=== PATIENT | male | born 1975 | race Caucasian/White ===

== ENCOUNTER 2024-05-05 10:43 | Emergency (ER) | payer SELFPAY ==
[~2024-05-05] VITALS: Ht 175.3 cm; Wt 79.5 kg
[2024-05-05] MEDS ORDERED: Ondansetron 4 MG/2 ML VIAL IV ONE (11:15)
[2024-05-05] MEDS ORDERED: NS 1,000 ML IV ONE (11:15)
[2024-05-05 11:19] LABS: BASO % 0.7 % (0.0-2.0); EOS # 0.1 K/mm3 (0.0-0.7); EOS % 2.5 % (0.0-4.0); GRAN # 2.4 K/mm3 (1.4-6.5); GRAN % 41.3 % (42.2-75.2); HEMATOCRIT 49.1 % (42.0-52.0); LYMPH # 2.6 K/mm3 (1.2-3.4); LYMPH % 45.6 % (20.0-51.0); MEAN CELL VOLUME 91 fl (80.0-100.0); MEAN CORPUSCULAR HEMOGLOBIN 32 pg (27-31); MEAN CORPUSCULAR HGB CONC 35 g/dl (33.0-37.0); MEAN PLATELET VOLUME 11.3 fl (7.4-10.4); MONO # 0.5 K/mm3 (0.1-0.6); MONO % 9.5 % (1.7-9.3); PLATELET COUNT 194 K/mm3 (130-400); REDCELL DISTRIBUTION WIDTH-CV 12.9 % (11.5-14.5)
[2024-05-05 11:40] LABS: ALBUMIN 4.2 g/dL (3.5-5.0); BILIRUBIN,TOTAL 0.6 mg/dL (0.2-1.2); CALCIUM 9.6 mg/dL (8.4-10.2); CREATININE, serum 0.95 mg/dL (0.72-1.25); POTASSIUM 3.7 mEq/L (3.5-4.5); TOTAL PROTEIN 7.6 g/dl (6.2-8.1)
[2024-05-05] MEDS ORDERED: Iohexol 300 - 100 ML VIAL IV ONE (11:41)
[2024-05-05] MEDS ORDERED: NS 100 ML IV SCH (11:41)
[2024-05-05 13:01] LABS: PH 5.5 (5.0-8.5); URINE APPEARANCE CLEAR (CLEAR/HAZY); URINE BLOOD NEGATIVE (NEGATIVE); URINE COLOR YELLOW (YELLOW); URINE GLUCOSE NEGATIVE (NEGATIVE); URINE KETONE NEGATIVE (NEGATIVE); URINE NITRATE NEGATIVE (NEGATIVE); URINE PROTEIN(semi-quant) NEGATIVE (NEGATIVE); URINE UROBILINOGEN 0.2 E.U/dL (0.2-1.0)
[2024-05-05 13:15] LABS: COLLECTION METHOD CLEAN CATCH
[2024-05-05 13:21] VITALS: BP 145/96; PULSE 55; TEMP 98.3
== END 2024-05-05 13:23 | disposition home or self-care (01) ==
LOC: COL.ER 10:43
PROVIDERS: Personal Emergency Response Attendant
DX: R10.31 Right lower quadrant pain (principal); R11.2 Nausea with vomiting, unspecified
CPT/HCPCS: J2405; J7030; Q9967